=== PATIENT | male | born 1945 | race Caucasian/White ===

== ENCOUNTER 2020-09-10 11:09 | Inpatient (IN) ==
[2020-09-10 12:28] LABS: Basophils % 0.1 % (0.0-0.8); Hemoglobin 16.9 GM/DL (14.0-18.0); Immature Granulocytes % 0.7 %; Immature Granulocytes Absolute 0.08 #; Lymphocytes # 0.7 10*3/uL (1.4-4.0); Lymphocytes % 5.7 % (21.2-54.2); Mean Corpuscular Volume 87.7 FL (87-102); Mean Platelet Volume 9.4 FL (9.6-12.0); Monocytes % 5.2 % (1.7-12.7); Neutrophils % 88.3 % (38.7-73.9); Platelet Count 230 T/CUMM (130-400); Red Blood Count 5.36 MC/CUMM (3.8-5.5); Red Cell Distribution Width 12.5 % (9.3-17.3); White Blood Count 12.2 T/CUMM (4-12)
[2020-09-10] MEDS ORDERED: DEXTROSE 50% 25 GM/50 ML VIAL IV PRN ×2 (12:44)
[2020-09-10] MEDS ORDERED: GLUCAGON 1 MG VIAL IM PRN ×2 (12:44)
[2020-09-10 13:02] LABS: Albumin 3.1 G/DL (3.4-5.0); Bilirubin,Total 0.9 MG/DL (0.2-1.0); Calcium 8.8 MG/DL (8.5-10.1); Osmolality,Calculated 274.5 MOS/KG (273-304); Total Protein 7.3 G/DL (6.4-8.3)
[2020-09-10 13:06] LABS: Ferritin 853.9 ng/ml (26-388)
[2020-09-10] MEDS: ENOXAPARIN 30 MG/0.3 ML SYRINGE SUBCUT SCH (15:52)
[2020-09-10] MEDS: SODIUM CHLORIDE 0.9% 1,000 ML IV SCH (15:52)
[2020-09-10] MEDS: INSULIN LISPRO 100 UNIT/ML SUBCUT SCH ×2 (17:09→21:00)
[2020-09-10] MEDS: ALBUTEROL INHALER 18 GM INH SCH (18:11)
[2020-09-10] MEDS: ROSUVASTATIN 20 MG TABLET PO SCH (21:00)
[2020-09-10] MEDS: ASCORBIC ACID 500 MG TABLET PO SCH (21:00)
[2020-09-10] MEDS: FAMOTIDINE 20 MG TABLET PO SCH (21:00)
[2020-09-11] MEDS: ALBUTEROL INHALER 18 GM INH SCH ×4 (01:10→21:15)
[2020-09-11] MEDS: SODIUM CHLORIDE 0.9% 1,000 ML IV SCH ×2 (03:55→21:22)
[2020-09-11 06:39] LABS: Hematocrit 43.1 VOL% (42.0-52.0); Hemoglobin 15.1 GM/DL (14.0-18.0); Immature Granulocytes % 0.7 %; Immature Granulocytes Absolute 0.08 #; Lymphocytes # 1.3 10*3/uL (1.4-4.0); Lymphocytes % 11.7 % (21.2-54.2); Mean Corpuscular Volume 88.9 FL (87-102); Mean Platelet Volume 9.5 FL (9.6-12.0); Monocytes % 4.7 % (1.7-12.7); Neutrophils % 82.9 % (38.7-73.9); Platelet Count 228 T/CUMM (130-400); Red Blood Count 4.85 MC/CUMM (3.8-5.5); Red Cell Distribution Width 12.5 % (9.3-17.3)
[2020-09-11] MEDS: LEVOTHYROXINE 100 MCG TABLET PO SCH (06:45)
[2020-09-11 07:01] LABS: Ferritin 822.3 ng/ml (26-388)
[2020-09-11 07:04] LABS: Albumin 2.5 G/DL (3.4-5.0); Bilirubin,Total 0.8 MG/DL (0.2-1.0); Calcium 8.2 MG/DL (8.5-10.1); Osmolality,Calculated 273.2 MOS/KG (273-304); Thyroid Stimulating Hormone 0.549 uIU/ml (0.358-3.74); Total Protein 6.9 G/DL (6.4-8.3)
[2020-09-11] MEDS: INSULIN LISPRO 100 UNIT/ML SUBCUT SCH ×4 (08:08→21:15)
[2020-09-11] MEDS ORDERED: MAGNESIUM SULF RIDER 2 GM in PREMIX 1 EACH IV PRN (08:10)
[2020-09-11] MEDS ORDERED: MAGNESIUM SULF RIDER 4 GM in PREMIX 1 EACH IV PRN (08:10)
[2020-09-11] MEDS ORDERED: PANTOPRAZOLE 40 MG TABLET PO SCH (09:00)
[2020-09-11] MEDS: ASCORBIC ACID 500 MG TABLET PO SCH ×2 (09:22→21:15)
[2020-09-11] MEDS: DEXAMETHASONE 4 MG TABLET PO SCH (09:23)
[2020-09-11] MEDS: CLOPIDOGREL 75 MG TABLET PO SCH (09:23)
[2020-09-11] MEDS: AZITHROMYCIN 250 MG TABLET PO SCH (09:23)
[2020-09-11] MEDS: ZINC SULFATE 220 MG CAPSULE PO SCH (09:23)
[2020-09-11] MEDS: FAMOTIDINE 20 MG TABLET PO SCH ×2 (09:23→21:15)
[2020-09-11] MEDS: ENOXAPARIN 30 MG/0.3 ML SYRINGE SUBCUT SCH (14:47)
[2020-09-11] MEDS ORDERED: SODIUM CHLORIDE 0.9% 1,000 ML IV PRN (14:47)
[2020-09-11] MEDS: ROSUVASTATIN 20 MG TABLET PO SCH (21:15)
[2020-09-11 22:16] LABS: Bilirubin,Urine Negative (Negative); Blood, Urine Negative (Negative); Glucose,Urine (UA) >=500 mg/dL (Negative); Ketones,Urine Negative (Negative); Nitrite,Urine Negative (Negative); Protein,Urine Negative; RBC,Urine <1 /HPF (0-4); Urine Appearance CLEAR (Clear); Urine Color Straw (Yellow); Urine Urobilinogen < 2.0 EU/DL (0.2-1.0); WBC,Urine <1 /HPF (0-6)
[2020-09-12] MEDS: ALBUTEROL INHALER 18 GM INH SCH ×5 (01:48→18:01)
[2020-09-12] MEDS: LEVOTHYROXINE 100 MCG TABLET PO SCH (06:00)
[2020-09-12] MEDS: SODIUM CHLORIDE 0.9% 1,000 ML IV SCH (06:01)
[2020-09-12 06:27] LABS: Basophils % 0.1 % (0.0-0.8); Hematocrit 43.4 VOL% (42.0-52.0); Hemoglobin 15.5 GM/DL (14.0-18.0); Immature Granulocytes % 1.3 %; Immature Granulocytes Absolute 0.16 #; Lymphocytes # 1.1 10*3/uL (1.4-4.0); Mean Corpuscular HGB Conc 35.7 GM/DL (32-36); Mean Corpuscular Volume 88.2 FL (87-102); Mean Platelet Volume 8.8 FL (9.6-12.0); Monocytes % 4.9 % (1.7-12.7); Neutrophils % 84.7 % (38.7-73.9); Platelet Count 237 T/CUMM (130-400); Red Blood Count 4.92 MC/CUMM (3.8-5.5); Red Cell Distribution Width 12.3 % (9.3-17.3)
[2020-09-12 06:50] LABS: Calcium 8.7 MG/DL (8.5-10.1); Ferritin 1114.4 ng/ml (26-388); Osmolality,Calculated 276.4 MOS/KG (273-304)
[2020-09-12] MEDS: INSULIN LISPRO 100 UNIT/ML SUBCUT SCH ×4 (09:58→20:21)
[2020-09-12] MEDS: DEXAMETHASONE 4 MG TABLET PO SCH (09:58)
[2020-09-12] MEDS: FAMOTIDINE 20 MG TABLET PO SCH ×2 (09:59→20:20)
[2020-09-12] MEDS: ASCORBIC ACID 500 MG TABLET PO SCH ×2 (09:59→20:22)
[2020-09-12] MEDS: ZINC SULFATE 220 MG CAPSULE PO SCH (09:59)
[2020-09-12] MEDS: AZITHROMYCIN 250 MG TABLET PO SCH (09:59)
[2020-09-12] MEDS: CLOPIDOGREL 75 MG TABLET PO SCH (09:59)
[2020-09-12] MEDS: ENOXAPARIN 30 MG/0.3 ML SYRINGE SUBCUT SCH (13:16)
[2020-09-12] MEDS: ROSUVASTATIN 20 MG TABLET PO SCH (20:20)
[2020-09-12] MEDS: ZALEPLON 5 MG CAPSULE PO PRN ×2 (22:00→23:00)
[2020-09-13] MEDS: ALBUTEROL INHALER 18 GM INH SCH ×5 (02:29→18:05)
[2020-09-13] MEDS: LEVOTHYROXINE 100 MCG TABLET PO SCH (05:55)
[2020-09-13 05:58] LABS: Basophils % 0.1 % (0.0-0.8); Hematocrit 41.9 VOL% (42.0-52.0); Hemoglobin 15.3 GM/DL (14.0-18.0); Immature Granulocytes % 1.1 %; Lymphocytes # 1.1 10*3/uL (1.4-4.0); Lymphocytes % 11.5 % (21.2-54.2); Mean Corpuscular HGB Conc 36.5 GM/DL (32-36); Mean Corpuscular Volume 86.7 FL (87-102); Mean Platelet Volume 9.3 FL (9.6-12.0); Monocytes % 5.1 % (1.7-12.7); Neutrophils % 82.2 % (38.7-73.9); Platelet Count 261 T/CUMM (130-400); Red Blood Count 4.83 MC/CUMM (3.8-5.5); Red Cell Distribution Width 12.1 % (9.3-17.3); White Blood Count 9.4 T/CUMM (4-12)
[2020-09-13 06:17] LABS: Calcium 9.1 MG/DL (8.5-10.1); Ferritin 1169.1 ng/ml (26-388); Osmolality,Calculated 276.7 MOS/KG (273-304)
[2020-09-13] MEDS: DEXAMETHASONE 4 MG TABLET PO SCH (08:40)
[2020-09-13] MEDS: INSULIN LISPRO 100 UNIT/ML SUBCUT SCH ×4 (08:40→21:16)
[2020-09-13] MEDS: FAMOTIDINE 20 MG TABLET PO SCH ×2 (08:41→21:16)
[2020-09-13] MEDS: CLOPIDOGREL 75 MG TABLET PO SCH (08:41)
[2020-09-13] MEDS: AZITHROMYCIN 250 MG TABLET PO SCH (08:41)
[2020-09-13] MEDS: ASCORBIC ACID 500 MG TABLET PO SCH ×2 (08:41→21:15)
[2020-09-13] MEDS: ZINC SULFATE 220 MG CAPSULE PO SCH (08:41)
[2020-09-13] MEDS: ENOXAPARIN 30 MG/0.3 ML SYRINGE SUBCUT SCH (13:39)
[2020-09-13] MEDS: ZALEPLON 5 MG CAPSULE PO PRN (21:15)
[2020-09-13] MEDS: ROSUVASTATIN 20 MG TABLET PO SCH (21:16)
[2020-09-14] MEDS: ALBUTEROL INHALER 18 GM INH SCH ×2 (00:10→06:16)
[2020-09-14] MEDS: LEVOTHYROXINE 100 MCG TABLET PO SCH (06:10)
[2020-09-14 06:21] LABS: Calcium 9.1 MG/DL (8.5-10.1); Osmolality,Calculated 284.2 MOS/KG (273-304)
[2020-09-14 06:31] LABS: Basophils % 0.2 % (0.0-0.8); Hematocrit 43.9 VOL% (42.0-52.0); Hemoglobin 15.6 GM/DL (14.0-18.0); Immature Granulocytes % 0.6 %; Immature Granulocytes Absolute 0.05 #; Lymphocytes % 11.1 % (21.2-54.2); Mean Corpuscular HGB Conc 35.5 GM/DL (32-36); Mean Platelet Volume 9.7 FL (9.6-12.0); Monocytes % 5.9 % (1.7-12.7); Neutrophils % 82.2 % (38.7-73.9); Platelet Count 277 T/CUMM (130-400); Red Blood Count 4.99 MC/CUMM (3.8-5.5); Red Cell Distribution Width 12.1 % (9.3-17.3); White Blood Count 8.7 T/CUMM (4-12)
[2020-09-14] MEDS ORDERED: lisinopriL 20 MG TABLET PO SCH (09:00)
[2020-09-14] MEDS: INSULIN LISPRO 100 UNIT/ML SUBCUT SCH (09:26)
[2020-09-14] MEDS: DEXAMETHASONE 4 MG TABLET PO SCH (09:26)
[2020-09-14] MEDS: CLOPIDOGREL 75 MG TABLET PO SCH (09:27)
[2020-09-14] MEDS: FAMOTIDINE 20 MG TABLET PO SCH (09:27)
[2020-09-14] MEDS: ASCORBIC ACID 500 MG TABLET PO SCH (09:27)
[2020-09-14] MEDS: AZITHROMYCIN 250 MG TABLET PO SCH (09:27)
[2020-09-14] MEDS: ZINC SULFATE 220 MG CAPSULE PO SCH (09:27)
[2020-09-14 11:48] VITALS: BP 151/67
== END 2020-09-14 12:32 | disposition home or self-care (01) | DRG 178 ==
LOC: N.ED 11:09 → N.EDINP 12:44 → INTOOBSV 12:44 → N.EDINP 14:20 → N.2E 15:20 → SUATTDRO 09-11 11:45
PROVIDERS: ADMIT Internal Medicine; ATTEND Internal Medicine